=== PATIENT | female | born 1995 | race American Indian/Alaskan Native ===

== ENCOUNTER 2017-11-27 05:41 | Emergency (ER) | payer MEDICAID ==
[2017-11-27 08:00] VITALS: BP 113/67
--- NOTE | 2017-11-27 08:10 | Emergency Department Report ---
ED N/V/D HPI - General Chief complaint: Upper Respiratory Infection Stated complaint: FLU-LIKE SX Time Seen by Provider: 11/27/17 08:09 Source: patient Mode of arrival: Ambulatory Limitations: No Limitations - History of Present Illness Initial comments: Patient here complaining of body aches, fever, cough 2-3 days. Patient said that she has been exposed to the flu and she has not been able to hold anything down. She says she took Midol approximately 4 or 5 AM prior to calling the ambulance. She came to the hospital via ambulance and reports body aches 8 out of 10 that is not relieved with medication. Denies any shortness of breath or chest pain. Denies any abdominal pain or back pain. Denies any urinary burning frequency or urgency. Last menstrual period was 11/19/2017. MD complaint: nausea, vomiting, other (fever and chills and exposure to flu) Onset/Timin -: days(s) Description of Vomiting: watery Associated Abdominal Pain: No Radiation: none Severity: severe Pain Scale: 8 (body ache) Quality: aching Consistency: constant Associated Symptoms: myalgias, cough, fever/chills, loss of appetite, malaise, nausea/vomiting. denies: chest pain, diaphoresis, headaches, rash, dysuria, shortness of breath, syncope, weakness - Related Data Previous Rx's Medication Instructions Recorded Last Taken Type Metoclopramide HCl [Reglan] 10 mg PO Q6H #20 tablet 02/14/14 Unknown Rx Ondansetron [Zofran Odt] 4 mg PO Q4H #20 tab.rapdis 01/14/15 Unknown Rx Pnv 21/Iron Ps,Heme Ppep/Folic 1 each PO QDAY #30 tablet 01/14/15 Unknown Rx [Prefera Ob Tablet] Cetirizine HCl [ZyrTEC] 10 mg PO QDAY 10 Days #10 capsule 11/27/17 Unknown Rx Ibuprofen [Motrin] 600 mg PO Q6H PRN #12 tablet 11/27/17 Unknown Rx Oseltamivir [Tamiflu] 75 mg PO BID 5 Days #10 cap 11/27/17 Unknown Rx guaiFENesin/CODEINE [Robitussin AC] 5 ml PO Q8H PRN #75 oral.liqd 11/27/17 Unknown Rx Allergies Allergy/AdvReac Type Severity Reaction Status Date / Time No Known Allergies Allergy Unverified 02/14/14 13:41 ED Review of Systems ROS: Stated complaint: FLU-LIKE SX Other details as noted in HPI Comment: All other systems reviewed and negative Constitutional: chills, fever, malaise ENT: congestion. denies: ear pain, throat pain, dental pain Respiratory: cough. denies: orthopnea, shortness of breath, SOB with exertion, SOB at rest, stridor, wheezing Cardiovascular: denies: chest pain, palpitations, dyspnea on exertion, orthopnea , edema, syncope, paroxysmal nocturnal dyspnea Gastrointestinal: nausea. denies: abdominal pain, vomiting, diarrhea, constipation, hematemesis, melena, hematochezia Genitourinary: denies: urgency, dysuria, frequency, hematuria, discharge, abnormal menses Musculoskeletal: myalgia. denies: back pain, arthralgia Skin: denies: rash Neurological: weakness. denies: headache, numbness, paresthesias, confusion, abnormal gait, vertigo ED Past Medical Hx - Past Medical History Previous Medical History?: No - Surgical History Past Surgical History?: Yes Additional Surgical History: left hand surgery. x2 - Family History Family history: no significant - Social History Smoking Status: Never Smoker Substance Use Type: None - Medications Home Medications: Home Medications Medication Instructions Recorded Confirmed Last Taken Type Metoclopramide HCl [Reglan] 10 mg PO Q6H #20 tablet 02/14/14 Unknown Rx Ondansetron [Zofran Odt] 4 mg PO Q4H #20 tab.rapdis 01/14/15 Unknown Rx Pnv 21/Iron Ps,Heme Ppep/Folic 1 each PO QDAY #30 tablet 01/14/15 Unknown Rx [Prefera Ob Tablet] Cetirizine HCl [ZyrTEC] 10 mg PO QDAY 10 Days #10 capsule 11/27/17 Unknown Rx Ibuprofen [Motrin] 600 mg PO Q6H PRN #12 tablet 11/27/17 Unknown Rx Oseltamivir [Tamiflu] 75 mg PO BID 5 Days #10 cap 11/27/17 Unknown Rx guaiFENesin/CODEINE [Robitussin AC] 5 ml PO Q8H PRN #75 oral.liqd 11/27/17 Unknown Rx ED Physical Exam - General Limitations: No Limitations General appearance: alert, in no apparent distress - Head Head exam: Present: atraumatic, normocephalic, normal inspection - Eye Eye exam: Present: normal appearance, PERRL, EOMI Pupils: Present: normal accommodation - ENT ENT exam: Present: normal orophraynx, mucous membranes moist, normal external ear exam, other (bilateral nasal mucosa congested without any erythema. Positive clear drainage). Absent: TM's normal bilaterally (bilateral TM congested without any erythema) - Neck Neck exam: Present: normal inspection, full ROM, other (no C-spine tenderness). Absent: tenderness, meningismus, lymphadenopathy, thyromegaly - Respiratory Respiratory exam: Present: normal lung sounds bilaterally, other (dry cough). Absent: respiratory distress, chest wall tenderness - Cardiovascular Cardiovascular Exam: Present: normal rhythm, tachycardia, normal heart sounds. Absent: systolic murmur, diastolic murmur - GI/Abdominal GI/Abdominal exam: Present: soft, normal bowel sounds. Absent: distended, tenderness, guarding, rebound, rigid, organomegaly, mass, bruit, pulsatile mass - Extremities Exam Extremities exam: Present: normal inspection, full ROM, normal capillary refill , other (no clubbing, cyanosis or edema. Pulses 2+ distal extremities). Absent : tenderness, pedal edema, joint swelling, calf tenderness - Back Exam Back exam: Present: normal inspection, full ROM. Absent: tenderness, CVA tenderness (R), CVA tenderness (L), muscle spasm, paraspinal tenderness, vertebral tenderness, rash noted - Neurological Exam Neurological exam: Present: alert, oriented X3, normal gait, reflexes normal. Absent: motor sensory deficit - Psychiatric Psychiatric exam: Present: normal affect, normal mood - Skin Skin exam: Present: warm, dry, intact, normal color. Absent: rash ED Course Vital Signs 11/27/17 11/27/17 11/27/17 05:51 07:59 11:30 Temperature 99.7 F H 100.5 F H 100.5 F H Pulse Rate 106 H 103 H 103 H Respiratory 18 18 18 Rate Blood Pressure 118/67 Blood Pressure 113/67 113/67 [Left] O2 Sat by Pulse 97 96 96 Oximetry - Reevaluation(s) Reevaluation #1: 11/27/17 10:39 Patient received Toradol 30 mg IV, Zofran 4 mg ODT and normal saline 1 L and emergency room which relieved her nausea and body aches. ED Medical Decision Making - Lab Data Lab Results 11/27/17 Range/Units 08:24 Urine Color Yellow (Yellow) Urine Turbidity Clear (Clear) Urine pH 7.0 (5.0-7.0) Ur Specific [place] 1.030 (1.003-1.030) Urine Protein 30 mg/dl (Negative) mg/dL Urine Glucose (UA) Neg (Negative) mg/dL Urine Ketones 20 (Negative) mg/dL Urine Blood Neg (Negative) Urine Nitrite Neg (Negative) Ur Reducing Substances Not Reportable Urine Bilirubin Neg (Negative) Urine Ictotest Not Reportable Urine Urobilinogen 4.0 (<2.0) mg/dL Ur Leukocyte Esterase Neg (Negative) Urine WBC (Auto) 2.0 (0.0-6.0) /HPF Urine RBC (Auto) 3.0 (0.0-6.0) /HPF U Epithel Cells (Auto) 14.0 H (0-13.0) /HPF Urine Mucus 2+ /HPF Urine HCG, Qual Negative (Negative) - Medical Decision Making ED course:Pt with flulike symptoms that has been exposed to the flu from her children. I discussed the patient is in my physical findings along with positive exposure that she had the flu. Patient was given IV fluid 1 L, Zofran 4 mg IV and Toradol 30 mg IV. Vital signs are stable and she is with low -grade temp. She says she feels better and able to tolerate oral liquids. Urinalysis without any bacterial infection and hCG is negative. This is explained to patient and she voiced understanding. Patient discharged home with prescription for Tamiflu, Zyrtec, Phenergan and to rest for 72 hours and to increase her fluid intake and follow up with her primary care physician. Critical care attestation.: If time is entered above; I have spent that time in minutes in the direct care of this critically ill patient, excluding procedure time. ED Disposition Clinical Impression: Acute viral syndrome, Fever and chills, Cough in adult, Body aches, Exposure to the flu Nausea & vomiting Qualifiers: Vomiting type: unspecified Vomiting Intractability: non-intractable Qualified Code(s): R11.2 - Nausea with vomiting, unspecified Disposition: - TO HOME OR SELFCARE Is pt being admited?: No Does the pt Need Aspirin: No Condition: Stable Instructions: Fever in Adults (ED), Acute Nausea and Vomiting (ED), Viral Syndrome (ED), Musculoskeletal Pain (ED), Acute Cough (ED) Additional Instructions: Please increase fluid intake to 2-3 L of fluid daily to include water, orange juice and Gatorade Take medication as prescribed Please do not drive or operate heavy machinery while taking Phenergan and/or cough medicine as these medication causes drowsiness Rest for 72 hours this will help you recover from his symptoms more quickly as your immune system is down and you need to give you body chance to recover. 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
[2017-11-27] MEDS ORDERED: TORADOL IV ONE (08:11)
[2017-11-27] MEDS ORDERED: ZOFRAN IV ONE (08:11)
[2017-11-27] MEDS ORDERED: NACL 0.9% 1000 ML 1,000 ML IV ONE (08:11)
[2017-11-27 09:10] LABS: HCG Qualitative,Urine Negative (Negative)
[2017-11-27 09:13] LABS: Bilirubin,Urine NEG (Negative); Blood,Urine NEG (Negative); Color,Urine Yellow (Yellow); Mucus,Urine 2+ /HPF; Nitrite,Urine NEG (Negative)
== END 2017-11-27 11:31 | disposition home or self-care (01) ==
LOC: ED 05:41
DX: B34.9 Viral infection, unspecified (principal); R50.9 Fever, unspecified; M79.1 Myalgia; R05 Cough; R11.2 Nausea with vomiting, unspecified; Z20.828 Contact with and (suspected) exposure to other viral communicable diseases
CPT/HCPCS: 81001; 81025; 96361; 96374; 96375; 99284; J1885; J2405; J7030

== ENCOUNTER 2020-07-12 13:20 | Outpatient (CLI) | payer OTHER ==
[2020-07-12] MEDS ORDERED: LIDOCAINE (4%) 40 MG/ML TOPICAL SOLN 50 ML BOTTLE TP SCH (14:00)
== END 2020-07-12 13:21 | disposition home or self-care (01) ==
LOC: WOUND 13:20
PROVIDERS: ATTEND Surgery
DX: O90.0 Disruption of cesarean delivery wound (principal); S31.104D Unspecified open wound of abdominal wall, left lower quadrant without penetration into peritoneal cavity, subsequent encounter; X58.XXXD Exposure to other specified factors, subsequent encounter; Y83.8 Other surgical procedures as the cause of abnormal reaction of the patient, or of later complication, without mention of misadventure at the time of the procedure
CPT/HCPCS: 99213; 99214; G0463